=== PATIENT | male | born 1990 | race Two or more races ===

== ENCOUNTER 2019-06-03 18:21 | Emergency (ER) | payer SELFPAY ==
[~2019-06-03] VITALS: Ht 188 cm; Wt 98.0 kg
--- NOTE | 2019-06-03 18:35 | NUR ---
ED Nurse Note: pt arrives from [facility] ([phone]/ staff Christina [phone]) via [facility] for c/o OD of pills. pt states he is not SI/HI but felt depressed yest at took pills on 06-02 @1400. pt relates he wants to be admitted to psych facility. pt cooperative with removal of belongings inventoried and placed in psych cabinet. pt relates had urinated earlier and unable to right now. awaiting md rubalcava.
--- NOTE | 2019-06-03 18:45 | NUR ---
ED Nurse Note: pt with iv start and labs pending. ivf infusing well. pt remains cooperative. pt with belongings place in psych locker #1, belongings list and check witnessed by supervisor in chargecarley omalley.
--- NOTE | 2019-06-03 19:15 | NUR ---
ED Nurse Note: RECEIVED PATIENT FROM TOSHIA CHAN. PATIENT SLEEPING IN BED WITH NO ACUTE DISTRESS. MONITOR ATTACHED; VSS. RESPIRATIONS EVEN AND UNLABORED. BED AT LOWEST POSITION; SIDE RAILS RAISED; BED LOCKED IN POSITION. WILL CONTINUE TO MONITOR.
[2019-06-03 19:24] LABS: BASOPHILS % (AUTO) 1.4 % (0.0-2.0); LYMPHOCYTES % (AUTO) 26.6 % (20.0-45.0); MEAN CORPUSCULAR VOLUME 83 FL (80-99); MONOCYTES % (AUTO) 9.1 % (1.0-10.0); NEUTROPHILS % (AUTO) 59.9 % (45.0-75.0); PLATELET COUNT 205 K/UL (150-450); RED CELL DISTRIBUTION WIDTH 9.4 % (11.6-14.8); WHITE BLOOD COUNT 3.9 K/UL (4.8-10.8)
[2019-06-03 19:26] LABS: ANION GAP 7 mmol/L (5-15); BLOOD UREA NITROGEN 8 mg/dL (7-18); CALCIUM 9.2 MG/DL (8.5-10.1); CARBON DIOXIDE 28 MMOL/L (21-32); CHLORIDE 106 MMOL/L (98-107); POTASSIUM 4.2 MMOL/L (3.5-5.1); SODIUM 141 MMOL/L (136-145)
[2019-06-03 19:34] VITALS: BP 123/76
[2019-06-03 19:41] LABS: ALANINE AMINOTRANSFERASE 46 U/L (12-78); ALBUMIN 3.9 G/DL (3.4-5.0); ALBUMIN/GLOBULIN RATIO 1.2 (1.0-2.7); ALKALINE PHOSPHATASE 92 U/L (46-116); ASPARTATE AMINO TRANSFERASE 25 U/L (15-37); BILIRUBIN,TOTAL 1.7 MG/DL (0.2-1.0)
[2019-06-03 19:45] LABS: BILIRUBIN,DIRECT 0.2 MG/DL (0.0-0.3)
--- NOTE | 2019-06-03 20:00 | NUR ---
ED Nurse Note: contacted poison control and spoke with dario, observe pt for 4 hrs and release, if symptomatic supportive measures.
--- NOTE | 2019-06-03 20:08 | NUR ---
ED Nurse Note: urine collected; sent down to lab
[2019-06-03 20:15] VITALS: BP 122/77
--- NOTE | 2019-06-03 21:20 | NUR ---
ED Nurse Note: PATIENT REMAINS ASLEEP WITH NO ACUTE DISTRESS; RESPIRATIONS EVEN AND UNLABORED. VSS. WILL CONTINUE TO MONITOR.
--- NOTE | 2019-06-03 22:23 | Emergency Room Report ---
History of Present Illness General Chief Complaint: Overdose Source: Patient Present Illness HPI 28-year-old male presents ED for evaluation. Brought in by EMS from home for reported overdose. Per EMS patient took multiple tablets of Ativan and Klonopin yesterday. Patient states he feels very drowsy and lethargic. States that the place he is living at call 911. States that he felt depressed yesterday and took the pills. States he does not feel suicidal at this time. Denies hearing voices. States he is otherwise compliant with his medications. Denies any other drug use. Denies alcohol use. No other aggravating relieving factors. Denies any other associated symptoms Allergies: Coded Allergies: No Known Allergies (Unverified , 06/03/19) Patient History Past Medical History: psych hx Past Surgical History: none Pertinent Family History: none Social History: Reports: drug use; Denies: smoking, alcohol use Immunizations: UTD Reviewed Nursing Documentation: PMH: Agreed; PSxH: Agreed Nursing Documentation-PMH Past Medical History: No History, Except For History Of Psychiatric Problem: Yes - depression ; Review of Systems All Other Systems: negative except mentioned in HPI Physical Exam Vital Signs Date Time Temp Pulse Resp B/P (MAP) Pulse Ox O2 Delivery O2 Flow Rate FiO2 06/03/19 18:20 98.2 76 18 123/76 (92) 99 Room Air Sp02 EP Interpretation: reviewed, normal General Appearance: no apparent distress, GCS 15, lethargic Head: normocephalic Eyes: bilateral eye normal inspection, bilateral eye PERRL ENT: normal ENT inspection Neck: normal inspection Respiratory: chest non-tender, lungs clear, normal breath sounds, speaking full sentences Cardiovascular #1: regular rate, rhythm, no edema Gastrointestinal: normal bowel sounds, non tender, soft, non-distended, no guarding, no rebound Rectal: deferred Genitourinary: no CVA tenderness Musculoskeletal: normal inspection Neurologic: other - lethargic Psychiatric: no delusions, depressed affect, anxious, other - lethargic Skin: no rash Lymphatic: normal inspection Medical Decision Making Diagnostic Impression: Primary Impression: Drug overdose Qualified Codes: T50.902A - Poisoning by unspecified drugs, medicaments and biological substances, intentional self-harm, initial encounter ER Course Hospital Course 28 yo M presents s/p overdose on ativan and klonopin Differential diagnoses include: Major depressive disorder, unspecified psychosis , EtOH abuse, drug abuse Clinical course Patient placed on stretcher. On one to one observation. After initial history and physical I ordered labs, IVFs, EKG, U. tox Labs-electrolytes normal, aspirin/Tylenol levels normal, EtOH level normal, U. tox +BZs EKG - NSR, no acute ischemic changes interpreted by me Overdose attempt occurred yesterday. Has been greater than 24 hours. Vitals stable. Patient is protecting airway. Lethargic but answering questions. Patient on 5150 hold from [employer] Spoke to patient psychiatrist Dr. Gilson Zuniga; he agrees that patient requires emergent psychiatric evaluation. He will attempt to place patient for inpatient treatment Patient is medically cleared and pending psychiatric evaluation. i. I feel this is a highly complex case requiring extensive working including EKG/Rhythm strip, Xray/CT/US, Blood/urine lab work, repeat exams while in ED, and administration of strong opiates/narcotics for pain control, admission to hospital or close patient follow up. Labs Test 06/03/19 18:50 06/03/19 19:55 White Blood Count 3.9 K/UL (4.8-10.8) Red Blood Count 4.60 M/UL (4.70-6.10) Hemoglobin 12.0 G/DL (14.2-18.0) Hematocrit 38.0 % (42.0-52.0) Mean Corpuscular Volume 83 FL (80-99) Mean Corpuscular Hemoglobin 26.2 PG (27.0-31.0) Mean Corpuscular Hemoglobin Concent 31.7 G/DL (32.0-36.0) Red Cell Distribution Width 9.4 % (11.6-14.8) Platelet Count 205 K/UL (150-450) Mean Platelet Volume 6.7 FL (6.5-10.1) Neutrophils (%) (Auto) 59.9 % (45.0-75.0) Lymphocytes (%) (Auto) 26.6 % (20.0-45.0) Monocytes (%) (Auto) 9.1 % (1.0-10.0) Eosinophils (%) (Auto) 3.0 % (0.0-3.0) Basophils (%) (Auto) 1.4 % (0.0-2.0) Sodium Level 141 MMOL/L (136-145) Potassium Level 4.2 MMOL/L (3.5-5.1) Chloride Level 106 MMOL/L (98-107) Carbon Dioxide Level 28 MMOL/L (21-32) Anion Gap 7 mmol/L (5-15) Blood Urea Nitrogen 8 mg/dL (7-18) Creatinine 1.0 MG/DL (0.55-1.30) Estimat Glomerular Filtration Rate > 60 mL/min (>60) Glucose Level 91 MG/DL (74-106) Calcium Level 9.2 MG/DL (8.5-10.1) Total Bilirubin 1.7 MG/DL (0.2-1.0) Direct Bilirubin 0.2 MG/DL (0.0-0.3) Aspartate Amino Transf (AST/SGOT) 25 U/L (15-37) Alanine Aminotransferase (ALT/SGPT) 46 U/L (12-78) Alkaline Phosphatase 92 U/L (46-116) Total Protein 7.2 G/DL (6.4-8.2) Albumin 3.9 G/DL (3.4-5.0) Globulin 3.3 g/dL Albumin/Globulin Ratio 1.2 (1.0-2.7) Salicylates Level < 0.2 ug/mL (2.8-20) Acetaminophen Level < 2 MCG/ML (10-30) Serum Alcohol < 3 mg/dL Urine Opiates Screen Negative (NEGATIVE) Urine Barbiturates Screen Negative (NEGATIVE) Phencyclidine (PCP) Screen Negative (NEGATIVE) Urine Amphetamines Screen Negative (NEGATIVE) Urine Benzodiazepines Screen Positive (NEGATIVE) Urine Cocaine Screen Negative (NEGATIVE) Urine Marijuana (THC) Screen Negative (NEGATIVE) EKG Diagnostic Results Rate: normal Rhythm: NSR ST Segments: no acute changes ASA given to the pt in ED: No Rhythm Strip Diag. Results EP Interpretation: yes Rhythm: NSR, no PVC's, no ectopy Last Vital Signs Date Time Temp Pulse Resp B/P (MAP) Pulse Ox O2 Delivery O2 Flow Rate FiO2 06/03/19 19:34 98.2 74 18 123/76 99 Room Air Status: improved Disposition: XFER TO PSYCH HOSP/UNIT Condition: Serious Referrals: NOT CHOSEN IPA/,REFERRING (PCP) Omar Vanegas MD Jun 03, 2019 22:23
[2019-06-03 22:30] VITALS: BP 119/75
--- NOTE | 2019-06-03 22:30 | NUR ---
ED Nurse Note: PATIENT ASLEEP WITH NO ACUTE DISTRESS. VSS.
[2019-06-03 23:45] VITALS: BP 118/76
--- NOTE | 2019-06-03 23:45 | NUR ---
ED Nurse Note: PATIENT ASLEEP WITH NO ACUTE DISTRESS. WILL CONTINUE TO MONITOR.
--- NOTE | 2019-06-04 00:41 | NUR ---
ED Nurse Note: PATIENT AWAKE ALERT AND ORIENTED X4. VSS. PROVIDED NOURISHMENT. OFFERED TOILETING; PT REFUSED. DENIES SI OR HI. CALM AND COOPERATIVE. WILL CONTINUE TO MONITOR.
[2019-06-04 00:43] VITALS: BP 125/80
--- NOTE | 2019-06-04 01:00 | NUR ---
ED Nurse Note: PATIENT TRANSFERRED TO TX2 PER CTE TEACHER. PT AWAKE ALERT AND ORIENTED X4. Addendum: 06/04/19 at 0109 by LCRISOSTOM HAND-OFF: Report given to MATTHEW CHAN.
[2019-06-04] MEDS ORDERED: LEXAPRO5 MG ORAL (01:39)
[2019-06-04] MEDS ORDERED: ATIVAN0.5 MG ORAL (01:39)
[2019-06-04] MEDS ORDERED: ABILIFY2 MG ORAL (01:39)
[2019-06-04] MEDS ORDERED: LAMICTAL25 MG ORAL (01:39)
[2019-06-04] MEDS ORDERED: TRAZODONE HCL300 MG ORAL (01:39)
--- NOTE | 2019-06-04 02:25 | NUR ---
report given to Tegan from [facility].
--- NOTE | 2019-06-04 02:50 | NUR ---
ED Nurse Note: Pt resting in bed with eyes closed, non-labored breathing, no signs of distress. Will continue to monitor
[2019-06-04 04:45] VITALS: BP 125/80
--- NOTE | 2019-06-04 04:45 | NUR ---
ER DISCHARGE NOTE: Patient is cleared to be discharged per ERMD, pt is aox4, on room air, with stable vital signs. pt was given dc and prescription instructions, pt was able to verbalize understanding, pt id band and iv site removed without complications. pt transfered to [facility] facility via [facility] ambulance. pt took all belongings.
--- NOTE | 2019-06-07 11:35 | Cardiology Report ---
APPROVED REPORT EKG Measurement Heart [id number] MD [id number] Normal sinus rhythm Normal ECG
== END 2019-06-04 04:45 ==
LOC: EDBD 18:21 → EMR 20:53
DX: T42.4X2A Poisoning by benzodiazepines, intentional self-harm, initial encounter (principal); Y92.9 Unspecified place or not applicable
CPT/HCPCS: 36415; 80053; 80307; 82248; 85025; 93005; 96360; 99285; G0480